=== PATIENT | male | born 1975 | race Caucasian/White ===

== ENCOUNTER 2016-07-18 07:48 | Emergency (ER) | payer OTHER ==
[2016-07-18 08:05] VITALS: BP 143/99
--- NOTE | 2016-07-18 08:37 | UC ---
Respiratory Complaint HPI - HPI Summary HPI Summary: Head congestion for 2 days, runny nose; headache the next day. Today nausea, then vomiting, weakness, fatigue and thoracic back pain. Pt needs note for work. felt feverish but not any more. mild diarrhea. no blood. nausea is slightly better now. decreased appetitie. 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 - History of Current Complaint Chief Complaint: UCRespiratory Stated Complaint: VOMITING,EAR PAIN,BACK PAIN Time Seen by Provider: 07/18/16 08:14 - Allergies/Home Medications Allergies/Adverse Reactions: Allergies Allergy/AdvReac Type Severity Reaction Status Date / Time No Known Allergies Allergy Verified 07/18/16 08:05 Home Medications: Home Medications Phenylephrine HCl (Oral) [Eql Nasal Decongestant PE] 10 mg PO Q4HR PRN 07/18/16 [History Confirmed 07/18/16] Saline Nasal Rinse 1 dose NASAL ONCE PRN 07/18/16 [History] PMH/Surg Hx/FS Hx/Imm Hx Previously Healthy: Yes Neurological History Of: Denies: CVA Other History Of: Negative For: Anticoagulant Therapy - Surgical History Surgical History: None - Family History Known Family History: Negative: Cardiac Disease, Diabetes - Social History Alcohol Use: Occasionally Substance Use Type: None Smoking Status (MU): Former Smoker Type: eCigdre Review of Systems Constitutional: Negative Skin: Negative Eyes: Negative ENT: Sore Throat, Ear Ache, Nasal Discharge Respiratory: Negative Cardiovascular: Negative Gastrointestinal: Vomiting, Diarrhea Genitourinary: Negative Motor: Negative Neurovascular: Negative Musculoskeletal: Other: - thoracic back pain on left. mild Neurological: Negative Psychological: Negative All Other Systems Reviewed And Are Negative: Yes Physical Exam Triage Information Reviewed: Yes Appearance: Well-Nourished, Ill-Appearing Vital Signs: Initial Vital Signs Temp 98.4 F 07/18/16 07:58 Pulse 104 07/18/16 07:58 Resp 18 07/18/16 07:58 BP 143/99 07/18/16 07:58 Pulse Ox 98 07/18/16 07:58 Vital Signs Reviewed: Yes Eye Exam: Normal ENT: Positive: Pharyngeal erythema - +PND, Nasal drainage, TMs normal, Muffled/ hoarse voice, Other: - no sinus tenderness. Negative: Tonsillar swelling, Tonsillar exudate Dental Exam: Normal Neck exam: Normal Neck: Positive: Supple, Nontender, No Lymphadenopathy Respiratory Exam: Normal Respiratory: Positive: Lungs clear, Normal breath sounds, No respiratory distress, No accessory muscle use Cardiovascular Exam: Normal Cardiovascular: Positive: RRR, No Murmur, Pulses Normal, Brisk Capillary Refill Abdominal Exam: Normal Abdomen Description: Positive: Nontender, No Organomegaly, Soft. Negative: Distended, Guarding Bowel Sounds: Positive: Present Musculoskeletal: Positive: Other: - left thoracic back with muscle spasms that when palpated reproduced the pain. no spams on right. spine NT. Good ROM Neurological Exam: Normal Psychological Exam: Normal Skin Exam: Normal UC Diagnostic Evaluation - Laboratory O2 Sat by Pulse Oximetry: 98 Respiratory Course/Dx - Course Course Of Treatment: Viral URI with gastrenteritis and thoracic muscle strain. needs rest and fluids. zofran. - Differential Dx/Diagnosis Differential Diagnosis/HQI/PQRI: Asthma, Bronchitis, Laryngitis, Lower Resp Infection, Sinusitis Provider Diagnoses: viral gastrenteritis, viral URI, thoracic back strain. Discharge - Discharge Plan Condition: Stable Disposition: HOME Prescriptions: Ondansetron [Zofran Odt] 4 mg PO Q6HR #10 tab Patient Education Materials: Gastroenteritis (ED), Thoracic Back Strain (ED), Upper Respiratory Infection (ED) Forms: *Work Release Referrals: No Primary Care Phys,NOPCP [Primary Care Provider] - 4 Days Additional Instructions: We talked about the importance of adequate hydration with equal amounts of water and low calorie gatorade aiming for frequent and light colored urine. We have given you a list of PCPs to call to establish with.
== END 2016-07-18 08:54 | disposition home or self-care (01) ==
LOC: UCCORT 07:48
DX: A08.4 Viral intestinal infection, unspecified (principal); J06.9 Acute upper respiratory infection, unspecified; S29.012A Strain of muscle and tendon of back wall of thorax, initial encounter; X58.XXXA Exposure to other specified factors, initial encounter; Y93.9 Activity, unspecified; Y92.9 Unspecified place or not applicable; Z87.891 Personal history of nicotine dependence
CPT/HCPCS: 99202; G0463

== ENCOUNTER 2018-03-13 07:03 | Emergency (ER) | payer OTHER ==
[2018-03-13 07:16] VITALS: BP 160/100
--- NOTE | 2018-03-13 07:26 | UC ---
Knee Pain HPI - HPI Summary HPI Summary: The patient is a 42-year-old male who awoke this morning with right lateral knee pain. He does not recall any injury. His knee feels like buckle. A hard time getting in and out of a vehicle. He can only take one step at a time when he goes up or down stairs. Had no prior problems with his knee. He works as a automobile body worker. - History of Current Complaint Chief Complaint: UCLowerExtremity Stated Complaint: R KNEE INJURY Time Seen by Provider: 03/13/18 07:18 Pain Intensity: 7 Legs: 1 - pain - Allergies/Home Medications Allergies/Adverse Reactions: Allergies Allergy/AdvReac Type Severity Reaction Status Date / Time No Known Allergies Allergy Verified 03/13/18 07:16 Home Medications: Home Medications NK [No Home Medications Reported] 03/13/18 [History Confirmed 03/13/18] PMH/Surg Hx/FS Hx/Imm Hx Previously Healthy: Yes Other History Of: Negative For: Anticoagulant Therapy - Surgical History Surgical History: None - Family History Known Family History: Positive: Hypertension Negative: Cardiac Disease, Diabetes - Social History Alcohol Use: Occasionally Substance Use Type: None Smoking Status (MU): Former Smoker Type: eCigarettes Review of Systems Constitutional: Negative Skin: Negative Eyes: Negative ENT: Negative Respiratory: Negative Cardiovascular: Negative Gastrointestinal: Negative Genitourinary: Negative Motor: Negative Neurovascular: Negative Musculoskeletal: Arthralgia Neurological: Negative Psychological: Negative Is Patient Immunocompromised?: No All Other Systems Reviewed And Are Negative: Yes Physical Exam Triage Information Reviewed: Yes Appearance: Well-Appearing, No Pain Distress, Well-Nourished Vital Signs: Initial Vital Signs Temp 97.8 F 03/13/18 07:09 Pulse 77 03/13/18 07:09 Resp 19 03/13/18 07:09 BP 160/100 03/13/18 07:09 Pulse Ox 98 03/13/18 07:09 Vital Signs Reviewed: Yes Eyes: Positive: Conjunctiva Clear ENT: Negative: Hearing grossly normal, Nasal congestion, Nasal drainage, Muffled voice Respiratory: Positive: Lungs clear, Normal breath sounds, No respiratory distress, No accessory muscle use Cardiovascular: Positive: RRR, No Murmur Musculoskeletal: Positive: ROM Intact, No Edema, Other: - see imabe Neurological: Positive: Alert Psychological Exam: Normal Skin Exam: Normal Diagnostics - Radiology No standard instances Xray Interpretation: No Acute Changes Radiology Interpretation Completed By: Radiologist Knee Pain Course/Dx - Differential Dx/Diagnosis Provider Diagnoses: Right knee pain ?etiology. ? ilio tibial band syndrome vs other Discharge - Sign-Out/Discharge Documenting (check all that apply): Patient Departure All imaging exams completed and their final reports reviewed: Yes - Discharge Plan Condition: Stable Disposition: HOME Patient Education Materials: Iliotibial Band Syndrome (ED), Knee Pain (ED), Knee Immobilizer (ED) Forms: *Work Release Referrals: Shabbir Paz MD [Medical Doctor] - If Needed (i suggest BP recheck in 2-8 weeks) [facility] [place] [facility] [Outside] - As Soon As Possible Additional Instructions: your BP was 160/100 follow up with your MD - Billing Disposition and Condition Condition: STABLE Disposition: Home
--- NOTE | 2018-03-13 08:04 | RAD ---
HISTORY: right knee pain (laterally) no trauma COMPARISONS: None VIEWS: 4 , Frontal, lateral, axial, and oblique views of the right knee FINDINGS: BONE DENSITY: Normal. BONES: There is no displaced fracture. JOINTS: There is no arthropathy. There is no suprapatellar joint effusion or lipohemarthrosis. ALIGNMENT: There is no dislocation. SOFT TISSUES: Unremarkable. OTHER FINDINGS: None. IMPRESSION: NO ACUTE OSSEOUS INJURY. IF SYMPTOMS PERSIST, RECOMMEND REPEAT IMAGING.
== END 2018-03-13 08:35 | disposition home or self-care (01) ==
LOC: UCEAST 07:03
DX: M25.561 Pain in right knee (principal); Z87.891 Personal history of nicotine dependence
CPT/HCPCS: 99212; G0463

== ENCOUNTER 2018-06-17 15:14 | Emergency (ER) | payer OTHER ==
--- OUTSIDE RECORDS SUMMARY | 2018-06-17 16:09 | XMS REPORT | Continuity of Care Document ---
:1975 External Reference #:[id number] Author Name Maicol Mercado M.D. Address [address] [place] [address] Care Team Providers Name Role Phone Maicol Mercado M.D. Care Team Information Workforce Services Representative Unavailable Payers Type Date Identification Numbers Payment Provider Subscriber Effective: Policy Number: [id number] 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 evening Amoxicillin Hx Tablets 500mg 30tabs 1 by K05.01 Rogelio, 018 - mouth Ahmad M., three M.D. 018 times a day Lisinopril Active Tablets 10mg 30tabs 1 by I10 Rogelio, 018 mouth Ahmad M., every day M.D. Immunizations Description No Information Available Vital Signs Date Vital Result Comment 05/19/2018 9:43am BP Systolic 130 mmHg BP Diastolic 80 mmHg Height 67 inches 5'7" Weight 212.00 lb BMI (Body Mass Index) 33.2 kg/m2 Heart Rate 88 /min Respiratory Rate 16 /min 05/05/2018 9:57am BP Systolic 128 mmHg BP Diastolic 82 mmHg Height 67 inches 5'7" Weight 210.00 lb BMI (Body Mass Index) 32.9 kg/m2 Heart Rate 80 /min Respiratory Rate 16 /min Results Test Date Facility Test Result H/L Range Note CBC With Diff 05/05/2018 [facility] WBC 5.8 10*3/uL (4.1-11.0) [address] (607)- - RBC 5.57 10*6/uL (4.60-6.10) HGB 16.6 g/dL (13.5-18.0) HCT 49.3 % (41.0-53.0) MCV 88.5 fL (80.0-95.0) MCH 29.9 pg (27.0-32.0) MCHC 33.7 g/dL (32.0-36.0) RDW 12.7 % (10.5-14.5) PLT 461 10*3/uL High (150-450) MPV 8.0 fL (7.1-10.7) Neut % 46.8 % (35.0-75.0) Lymph % 41.0 % (16.0-52.0) [place] % 9.3 % High (0.0-8.0) Eos % 2.0 % (0.0-5.0) Baso % 0.9 % (0.0-4.0) Neut # 2.7 10*3/uL (1.8-7.7) Lymph # 2.4 10*3/uL (1.2-4.8) [place] # 0.5 10*3/uL (0.0-0.8) Eos # 0.1 10*3/uL (0.0-0.5) Baso # 0.1 10*3/uL (0.0-0.2) CMP 05/05/2018 [facility] Sodium 139 mmol/L (136-145) [address] (607)- - Potassium 4.5 mmol/L (3.6-5.2) Chloride 104 mmol/L (100-108) Co2 24 mmol/L (22-31) Anion Gap 11 mmol/L (7-16) Urea Nitrogen 17 mg/dL (7-24) Creatinine 0.92 mg/dL (0.80-1.30) BUN/Creat Ratio 18.5 RATIO (10.0-20.0) Glucose 187 mg/dL High (70-99) Calcium 8.8 mg/dL (8.4-10.2) Total Protein 7.9 g/dL (6.4-8.2) Albumin 4.1 g/dL (3.5-4.6) Globulin 3.8 g/dL (2.7-4.3) Alb/Glob Ratio 1.1 RATIO Alkaline Phosphatase 78 U/L (45-117) Bilirubin,Total 0.5 mg/dL (0.0-1.0) Ast (Sgot) 36 U/L (11-39) Alt (SGPT) 72 U/L (12-78) GFR >60 ml/min/1.73m2 (>59) GFR ( Amer) >60 ml/min/1.73m2 (>59) GFR Interpretation <SEE NOTE> 1 Lipid 05/05/2018 [facility] Cholesterol @ 209 mg/dL High (0-200) [address] (607)- - Triglyceride @ 257 mg/dL High (30-200) HDL Cholesterol @ 34 mg/dL Low (>40) 2 Chol/HDL Ratio 6.1 RATIO 3 LDL Chol (Calc) 124 mg/dL (<130) 4 Laboratory 05/05/2018 [facility] TSH,Ultrasensitive @ 1.170 (0.360- 4.170) test finding [address] mIU/L (607)- - Hemoglobin 05/05/2018 [facility] Hemoglobin A1c @ 7.8 % High (4.0-6.0) 5 A1c [address] (607)- - Est Average Glucose 177 mg/dL Laboratory test 05/05/2018 [facility] 25 Hydroxy Vit 14 ng/mL Low (31- 100) 6 finding [address] D @ (608)- - Esr 16 mm/h High (0-15) 1 NORMAL KIDNEY FUNCTION OR MILD DISEASE - GFR >OR=60 CHRONIC KIDNEY DISEASE - GFR 15 - 59 RENAL FAILURE - GFR <15 Est. GFR calculation based on the MDRD study equation, which assumes a steady state for creatinine. Est. GFR should not be used for medication dosing. 2 PER NCEP ATP III GUIDELINES: RESULTS LOWER THAN 40 MG/DL ARE SUGGESTIVE OF INCREASED RISK FOR CORONARY ARTERY DISEASE. RESULTS > OR=TO 60 MG/DL ARE CONSIDERED A NEGATIVE RISK FACTOR. 3 INTERPRETATION OF CHOL-HDL RATIO CHD RISK FEMALE MALE VERY HIGH >8.3 >14.3 HIGH 5.6- 8.3 6.7- 14.3 AVERAGE 3.7- 5.6 4.0- 6.7 BELOW AVERAGE 2.5- 3.7 2.7- 4.0 PROTECTED <2.5 <2.7 4 PER NCEP ATP III GUIDELINES: OPTIMAL < 100 NEAR OPTIMAL 100 - 129 BORDERLINE HIGH 130 - 159 HIGH 160 - 189 VERY HIGH > 189 5 Performed using Siemens Hartselle immunoassay. Care must be taken when interpreting HbA1c results in patients with a hemoglobin variant or decreased erythrocyte lifespan. Values 5.7 - 6.4% suggest prediabetes. Values >=6.5% are diagnostic for diabetes. REFERENCE: DIABETES CARE 2018: 41(S13-S27). 6 A REVIEW OF THE LITERATURE SUGGESTS THE FOLLOWING RANGES FOR THE CLASSIFICATION OF 25-OH VITAMIN D STATUS: VITAMIN D STATUS 25-OH VITAMIN D DEFICIENCY <20 NG/ML INSUFFICIENCY 20-30 NG/ML SUFFICIENCY 31 - 100 NG/ML TOXICITY > 100 NG/ML A PEDIATRIC REFERENCE RANGE HAS NOT BEEN ESTABLISHED USING THIS METHOD. Procedures Date Code Description Status 05/05/2018 77394 Visual Screening Test Completed 05/05/2018 36851 EKG Completed 05/05/2018 22445 Audiometry, Bekesy, Screening Completed Encounters Type Date Location Provider Dx Diagnosis Office Visit 05/19/2018 [facility] Maicol Mercado E11.65 Type 2 diabetes 9:45a M.DNirmala mellitus with hyperglycemia I10 Essential (primary) hypertension E78.2 Mixed hyperlipidemia L20.9 Atopic dermatitis, unspecified J30.9 Allergic rhinitis, unspecified F90.0 Attn-defct hyperactivity disorder, predom inattentive type F41.9 Anxiety disorder, unspecified F33.9 Major depressive disorder, recurrent, unspecified R55 Syncope and collapse G47.33 Obstructive sleep apnea (adult) (pediatric) R06.83 Snoring E55.9 Vitamin D deficiency, unspecified R53.83 Other fatigue E66.9 Obesity, unspecified N40.1 Benign prostatic hyperplasia with lower urinary tract symp R35.1 Nocturia K05.01 Acute gingivitis, non-plaque induced Office Visit 05/05/2018 10:15a [facility] Maicol Mercado Z00.01 Encounter for [facility] general adult medical exam w abnormal findings E11.65 Type 2 diabetes mellitus with hyperglycemia I10 Essential (primary) hypertension E78.2 Mixed hyperlipidemia L20.9 Atopic dermatitis, unspecified J30.9 Allergic rhinitis, unspecified F90.0 Attn-defct hyperactivity disorder, predom inattentive type F41.9 Anxiety disorder, unspecified F33.9 Major depressive disorder, recurrent, unspecified R55 Syncope and collapse G47.33 Obstructive sleep apnea (adult) (pediatric) R06.83 Snoring E55.9 Vitamin D deficiency, unspecified R53.83 Other fatigue E66.9 Obesity, unspecified N40.1 Benign prostatic hyperplasia with lower urinary tract symp R35.1 Nocturia Plan of Treatment Future Appointment(s):07/21/2018 9:15 am - Maicol Mercado M.D. at [id number]/19/2018 - Maicol Mercado M.D.E11.65 Type 2 diabetes mellitus with hyperglycemiaNew Medication:Metformin HCL ER 500 mg - 1 tab by mouth every eveningComments:DIET REVIEWED CONTINUE DIETWT LOSSFS qAC AND HS PRN F/U FBWFollow up:2 uqoetM62 Essential (primary) hypertensionComments:CHECK BP TIW ( PRN)DIET AND FLUID COUNSELING LOW SODIUM DIETWT LOSSF/U LABE78.2 Mixed hyperlipidemiaComments:DIET REVIEWED CONTINUE DIETWT LOSSF/U LAB FBWL20.9 Atopic dermatitis, unspecifiedComments:SKIN CARE INSTRUCTIONS LOTION OR BABY OIL 2-3 APPLICATION PER DAYUSE MOISTURIZING SOAPAVOID PROLONGED WATER EXPOSUREAVOID USING HOT WATER IN BVKAFPW78.9 Allergic rhinitis, unspecifiedComments:INCREASE PO FLUID USE ANTIHISTAMINE PRN SECOND HAND SMOKING KBGLYHATWZ18.0 Attention-deficit hyperactivity disorder, predominantly inatComments:COUNCELLING AND REASSURANCEF/U DIRECTTEACHING ON TIME MANGEMENT AND IMPROVING ORGANIZATIONAL PAEUTST23.9 Anxiety disorder, unspecifiedComments: COUNCELLING AND REASSURANCE RELAXATION TECHNIQUES DISCUSSEDCOUNSELED RE: STRESSORS IN LIFE AVOID ALLENERGY/HIGH CAFFEINE XWMVQZJ96.9 Major depressive disorder, recurrent, unspecifiedComments:COUNCELLING AND REASSURANCE RELAXATION TECHNIQUES DISCUSSED COUNSELED RE: STRESSORS IN LIFER55 Syncope and collapseComments:QSJRVOCMR55.33 Obstructive sleep apnea (adult) (pediatric) Comments:OBSERVEWT LOSSR06.83 SnoringComments:OBSERVE FOR NOWWT LOSSE55.9 Vitamin D deficiency, unspecifiedComments:INCREASE EXPOSURE TO SUNREVIEW OF DIETR53.83 Other fatigueComments:INCRFEASE PO FLUIDCOUNCELLING AND REASSURANCE RESTE66.9 Obesity, unspecifiedComments:WT LOSS COUNCELLINGEXERCISEDIET PFHWZKDALQBU34.1 Benign prostatic hyperplasia with lower urinary tract symptoComments:CZXLJLXP72.1 NocturiaComments:XUXCZWPK31.01 Acute gingivitis, non -plaque inducedNew Medication:Amoxicillin 500 mg - 1 by mouth three times a dayComments:F/U WITH DENTALWARM COMPRESSCALL IF SEVERE PAIN , VISUAL CHANGES
--- NOTE | 2018-06-17 16:46 | ED ---
Laceration/Wound HPI - HPI Summary HPI Summary: Patient presents to the ED after dropping a large heavy hammer onto his left small finger. He endorses a 2/10 pain, constant and throbbing. Bleeding is well controlled on arrival. The nail is avulsed. Tetanus is up-to-date. He is currently on antibiotics for a tooth infection. He denies any other injuries on this date. Denies any numbness or tingling. He is able to move the finger without discomfort or range of motion limitations. - History of Current Complaint Stated Complaint: INJURED FINGER Time Seen by Provider: 06/17/18 15:27 Hx Obtained From: Patient Mechanism of Injury: Sharp/Blunt Trauma Onset/Duration: Sudden Onset Aggravating: Movement Alleviating: Compression Timing: Constant Onset Severity: Moderate Current Severity: Moderate Pain Intensity: 8 Pain Scale Used: 0-10 Numeric Associated Signs & Symptoms: Negative - Allergy/Home Medications Allergies/Adverse Reactions: Allergies Allergy/AdvReac Type Severity Reaction Status Date / Time No Known Allergies Allergy Verified 03/24/18 10:54 Home Medications: Home Medications Lisinopril 10 mg PO DAILY 06/17/18 [History Confirmed 06/17/18] Metformin ER (NF) 500 mg PO DAILY 06/17/18 [History Confirmed 06/17/18] PMH/Surg Hx/FS Hx/Imm Hx Previously Healthy: Yes Endocrine/Hematology History: Denies: Hx Anticoagulant Therapy, Hx Diabetes, Hx Thyroid Disease Cardiovascular History: Denies: Hx Hypertension, Hx Pacemaker/ICD Respiratory History: Denies: Hx Asthma, Hx Chronic Obstructive Pulmonary Disease (COPD) GI History: Denies: Hx Ulcer History: Denies: Hx Renal Disease Sensory History: Denies: Hx Hearing Aid Neurological History: Denies: Other Neuro Impairments/Disorders Psychiatric History: Denies: Hx Panic Disorder - Immunization History Date of Tetanus Vaccine: 02/23/13 Hx Pertussis Vaccination: No Immunizations Up to Date: Yes Infectious Disease History: No Infectious Disease History: Denies: Hx Hepatitis, Hx Human Immunodeficiency Virus (HIV), Traveled Outside the [place] in Last 30 Days - Family History Known Family History: Positive: Hypertension Negative: Cardiac Disease, Diabetes - Social History Occupation: Employed Full-time Lives: With Family Alcohol Use: Occasionally Hx Substance Use: No Substance Use Type: Reports: None Hx Tobacco Use: Yes Smoking Status (MU): Former Smoker Type: Franko Review of Systems Negative: Fever, Chills, Fatigue, Skin Diaphoresis Negative: Palpitations, Chest Pain Negative: Shortness Of Breath, Cough Genitourinary: Negative Positive: no symptoms reported, see HPI Positive: Arthralgia Positive: Other - nail avulsion Neurological: Negative All Other Systems Reviewed And Are Negative: Yes Physical Exam Triage Information Reviewed: Yes Vital Signs On Initial Exam: Initial Vitals Temp Pulse Resp BP Pulse Ox 97.8 F 80 16 140/99 97 06/17/18 15:21 06/17/18 15:21 06/17/18 15:21 06/17/18 15:21 06/17/18 15:21 Vital Signs Reviewed: Yes Appearance: Positive: Well-Appearing, Well-Nourished Skin: Positive: Warm, Skin Color Reflects Adequate Perfusion, Other - nail avulsion Head/Face: Positive: Normal Head/Face Inspection Eyes: Positive: EOMI, SUSAN, Conjunctiva Clear Neck: Positive: Supple Respiratory/Lung Sounds: Positive: Clear to Auscultation, Breath Sounds Present Cardiovascular: Positive: RRR, Pulses are Symmetrical in both Upper and Lower Extremities Musculoskeletal: Positive: Pain @ - left small finger Neurological: Positive: Speech Normal Psychiatric: Positive: Normal, Affect/Mood Appropriate AVPU Assessment: Alert Diagnostics - Vital Signs Vital Signs Temp Pulse Resp BP Pulse Ox 06/17/18 15:21 97.8 F 80 16 140/99 97 - Laboratory Lab Statement: Any lab studies that have been ordered have been reviewed, and results considered in the medical decision making process. Laceration Repair Course/Dx - Course Course Of Treatment: Patient is already on antibiotics, penicillin for a tooth infection last week. Comminuted fracture of the distal tip of the phalanx is noted on x-ray. Soaked for 10 minutes and cleansed thoroughly using a bedside washout with jet irrigation x 10 minutes. Nailbed avulsion. Patient denies any numbness or tingling. Digital block obtained with good effect. Nail removed using alligator forceps. Patient tolerated well. Occlusive gauze applied with tube gauze and pressure dressing. Patient will follow-up with orthopedics next week. - Differential Dx Differental Diagnoses: Avulsion, Laceration - Clinical Impression Provider Diagnoses: Nail avulsion, Crush injury, Open fracture of phalanx of finger Discharge - Sign-Out/Discharge Documenting (check all that apply): Patient Departure - Discharge Plan Condition: Stable Disposition: HOME Patient Education Materials: Nail Removal (ED) Forms: *Work Release Referrals: Shabbir Paz MD [Primary Care Provider] - Shabbir Gunderson MD [Medical Doctor] - Additional Instructions: Please follow up with Dr. Gunderson Keep the area clean and wrapped - use the vaseline gauze x 3 days at least You may leave open to air when you are NOT at work after 5 days to allow it to heal faster - Billing Disposition and Condition Condition: STABLE Disposition: Home
[2018-06-17 17:00] VITALS: BP 145/91
== END 2018-06-17 16:58 | disposition home or self-care (01) ==
LOC: ED 15:14
DX: S62.637B Displaced fracture of distal phalanx of left little finger, initial encounter for open fracture (principal); W22.8XXA Striking against or struck by other objects, initial encounter; Y92.9 Unspecified place or not applicable; Z87.891 Personal history of nicotine dependence
CPT/HCPCS: 73140; 99282

== ENCOUNTER 2019-07-31 10:45 | Emergency (ER) | payer OTHER ==
[2019-07-31 11:49] VITALS: BP 122/78
--- NOTE | 2019-07-31 12:29 | UC ---
Dental HPI - HPI Summary HPI Summary: Pt presents with c/o left upper gum swelling, tenderness and purulent discharge. Pt's "stuck a needle" in swollen area of gum and states "a lot of pus came out" Pain in gum are began ~ 2 weeks ago. Pt states that he had a crown placed on affected tooth ~ 4 years ago. Denies any recent injury to tooth or recent dental work. - History of Current Complaint Chief Complaint: UCDentalProblem Stated Complaint: ORAL CONCERN Time Seen by Provider: 07/31/19 12:12 Hx Obtained From: Patient Onset/Duration: Gradual Onset, Lasting Days, Still Present Severity: Moderate Pain Intensity: 0 Aggravating Factor(s): Chewing Alleviating Factor(s): Nothing Related History: Previous Dental Care on Same Tooth, Discharge, Swelling - Allergies/Home Medications Allergies/Adverse Reactions: Allergies Allergy/AdvReac Type Severity Reaction Status Date / Time No Known Allergies Allergy Verified 07/31/19 11:50 PMH/Surg Hx/FS Hx/Imm Hx Previously Healthy: Yes Endocrine History: Diabetes Cardiovascular History: Hypertension Other History Of: Negative For: Anticoagulant Therapy - Surgical History Surgical History: None - Family History Known Family History: Positive: Hypertension Negative: Cardiac Disease, Diabetes - Social History Occupation: Employed Full-time Lives: With Family Alcohol Use: Occasionally Substance Use Type: None Smoking Status (MU): Former Smoker Type: eCigarettes Have You Smoked in the Last Year: Yes Review of Systems All Other Systems Reviewed And Are Negative: Yes Constitutional: Positive: Negative Skin: Positive: Negative Eyes: Positive: Negative ENT: Positive: Dental Pain - swelling Respiratory: Positive: Negative Cardiovascular: Positive: Negative Gastrointestinal: Positive: Negative Genitourinary: Positive: Negative Motor: Positive: Negative Neurovascular: Positive: Negative Musculoskeletal: Positive: Negative Neurological: Positive: Negative Psychological: Positive: Negative Is Patient Immunocompromised?: No Physical Exam Triage Information Reviewed: Yes Appearance: Well-Appearing Vital Signs: Initial Vital Signs Temp 97.5 F 07/31/19 11:46 Pulse 74 07/31/19 11:46 Resp 18 07/31/19 11:46 BP 122/78 07/31/19 11:46 Pulse Ox 100 07/31/19 11:46 Vital Signs Reviewed: Yes Eye Exam: Normal ENT Exam: Normal Dental: Positive: Abscess @ - right upper inner posterior gum Neck exam: Normal Neck: Positive: Supple, Nontender Respiratory Exam: Normal Cardiovascular Exam: Normal Musculoskeletal Exam: Normal Neurological Exam: Normal Psychological Exam: Normal Skin Exam: Normal Dental Complaint Course/Dx - Differential Dx/Diagnosis Differential Diagnosis/Dx: Dental Abscess, Dental Caries, Fractured Tooth Provider Diagnosis: Abscess Discharge ED - Sign-Out/Discharge Documenting (check all that apply): Patient Departure All imaging exams completed and their final reports reviewed: No Studies - Discharge Plan Condition: Stable Disposition: HOME Prescriptions: Clindamycin HCl 300 mg PO Q6H #40 capsule Patient Education Materials: Dental Abscess (ED) Referrals: Nery Mercado MD [Primary Care Provider] - If Needed Additional Instructions: Please follow up with a dental care provider as soon as possible. - Billing Disposition and Condition Condition: STABLE Disposition: Home
== END 2019-07-31 12:36 | disposition home or self-care (01) ==
LOC: UCCORT 10:45
DX: K05.319 Chronic periodontitis, localized, unspecified severity (principal); E11.9 Type 2 diabetes mellitus without complications; I10 Essential (primary) hypertension; Z87.891 Personal history of nicotine dependence
CPT/HCPCS: 99212; G0463